=== PATIENT | male | born 1985 | race Caucasian/White ===

== ENCOUNTER 2016-10-02 15:00 | Emergency (ER) | payer OTHER ==
[~2016-10-02] VITALS: Ht 180.3 cm; Wt 103.2 kg
[2016-10-02] MEDS ORDERED: ALL DAY ALLERGY10 MG PO (15:24)
[2016-10-02] MEDS ORDERED: ACID CONTROL150 MG PO (15:24)
[2016-10-02] MEDS ORDERED: HYDROCODON-ACE1 EAC7 PO (15:25)
[2016-10-02] MEDS ORDERED: METHOCARBAMOL500 MG PO (15:25)
[2016-10-02 15:57] LABS: HEMATOCRIT 43.3 % (38.0-50.0); MCH 30.5 PG (29.0-34.0); MCHC 34.9 G/DL (30.0-36.0); MCV 87.5 FL (86-99); MEAN PLAT.VOLUME 10.1 uM^3 (9.0-12.4); PLATELET COUNT 215 K/uL (156-360); RBC DIS.WIDTH-CV 12.2 % (11.8-14.6); RBC DIS.WIDTH-SD 38.5 % (39-53); RED BLOOD COUNT 4.95 M/uL (4.00-5.50); WHITE BLOOD COUNT 6.4 K/uL (4.1-10.2)
[2016-10-02 16:03] LABS: CHLORIDE 105 mEq/L (99-109)
[2016-10-02 16:04] LABS: POTASSIUM 3.7 mEq/L (3.7-5.4); SODIUM 141 mEq/L (136-147)
[2016-10-02 16:06] LABS: GLUCOSE 78 mg/dL (70-99)
[2016-10-02 16:07] LABS: ANION GAP 15 MEQ/L (2-14)
[2016-10-02 16:08] LABS: TOTAL BILIRUBIN 1.8 mg/dL (0.0-1.0)
[2016-10-02 16:09] LABS: ALKALINE PHOSPHATASE 40 IU/L (3-129); GFR ESTIMATE (CALCULATED) > 59 mL/min/
[2016-10-02 16:10] LABS: UREA NITROGEN (BUN) 11 mg/dL (9-23)
[2016-10-02 16:13] LABS: LIPASE 9 U/L (1.0-51.0)
[2016-10-02] MEDS ORDERED: NORCO 5/3251 TABLET PO (18:00)
[2016-10-02] MEDS ORDERED: ZOFRAN ODT4 MG PO (18:00)
[2016-10-02 18:16] VITALS: BP 122/74
== END 2016-10-02 18:22 | disposition home or self-care (01) ==
LOC: EME 15:00
PROVIDERS: Nurse Practitioner Family
DX: K80.20 Calculus of gallbladder without cholecystitis without obstruction (principal); K21.9 Gastro-esophageal reflux disease without esophagitis; F17.200 Nicotine dependence, unspecified, uncomplicated
CPT/HCPCS: 74177; 80053; 83690; 85027; 93005; 99281; 99285; J7040

== ENCOUNTER 2016-10-27 08:49 | Day surgery (SDC) | payer OTHER ==
[~2016-10-27] VITALS: Ht 180.3 cm; Wt 99.8 kg
[~2016-10-27 08:49] MED LIST: ACID CONTROL150 MG PO; ALL DAY ALLERGY10 MG PO; FIBER-TABS625 MG PO; HYDROCODON-ACE1 EAC7 PO; METHOCARBAMOL500 MG PO; MULTIPLE VITAM1 EACH PO; NORCO 5/3251 TABLET PO; PREDNISONE20 MG PO; ZOFRAN ODT4 MG PO; ZYRTEC10 M2 PO
[2016-10-27 09:27] VITALS: BP 122/77
[2016-10-27 13:07] VITALS: BP 133/68
[2016-10-27 13:46] VITALS: BP 120/70
== END 2016-10-27 14:00 | disposition home or self-care (01) ==
LOC: SDC 08:49
PROC: 0FT44ZZ Resection of Gallbladder, Percutaneous Endoscopic Approach (ICD-10-PCS; principal; 2016-10-27)
DX: K80.10 Calculus of gallbladder with chronic cholecystitis without obstruction (principal); E80.6 Other disorders of bilirubin metabolism; Q44.1 Other congenital malformations of gallbladder; M51.36 Other intervertebral disc degeneration, lumbar region; K21.9 Gastro-esophageal reflux disease without esophagitis; J30.2 Other seasonal allergic rhinitis; J30.89 Other allergic rhinitis; Z80.1 Family history of malignant neoplasm of trachea, bronchus and lung; Z87.891 Personal history of nicotine dependence
CPT/HCPCS: 88304; J0330; J0690; J1100; J1170; J2405; J2710; J3010

== ENCOUNTER 2017-09-11 07:36 | Emergency (ER) | payer OTHER ==
[~2017-09-11] VITALS: Ht 180.3 cm; Wt 97.7 kg
[2017-09-11 08:37] LABS: HEMOGLOBIN 14.9 G/DL (12.5-16.6); MCHC 34.7 G/DL (30.0-36.0); MCV 89.4 FL (86-99); PLATELET COUNT 166 K/uL (156-360); RBC DIS.WIDTH-CV 11.5 % (11.8-14.6); RBC DIS.WIDTH-SD 37.6 % (39-53); RED BLOOD COUNT 4.81 M/uL (4.00-5.50); WHITE BLOOD COUNT 4.3 K/uL (4.1-10.2)
[2017-09-11 08:46] LABS: CHLORIDE 105 mEq/L (99-109); SODIUM 139 mEq/L (136-147)
[2017-09-11 08:48] LABS: GLUCOSE 90 mg/dL (70-99); TOTAL PROTEIN 6.2 g/dL (6.4-8.3)
[2017-09-11 08:50] LABS: TOTAL BILIRUBIN 1.7 mg/dL (0.0-1.0)
[2017-09-11 08:52] LABS: ALKALINE PHOSPHATASE 43 IU/L (3-129); CREATININE 0.9 mg/dL (0.6-1.3); GFR ESTIMATE (CALCULATED) > 59 mL/min/ (58.99-99999)
[2017-09-11 08:53] LABS: UREA NITROGEN (BUN) 17 mg/dL (9-23)
[2017-09-11 08:54] LABS: AST (GOT) 22 IU/L (2-34)
[2017-09-11 08:55] LABS: ALT (GPT) 22 IU/L (3-49); LIPASE 10 U/L (1.0-51.0)
[2017-09-11 09:34] LABS: APPEARANCE CLEAR ((CLEAR)); BILIRUBIN NEGATIVE; BLOOD NEGATIVE; COLOR YELLOW ((YELLOW)); GLUCOSE (STRIP) NEGATIVE; KETONES NEGATIVE; LEUKOCYTES NEGATIVE; NITRITE NEGATIVE; PROTEIN (STRIP) NEGATIVE; SPECIFIC GRAVITY 1.012 (1.000-1.030); UROBILINOGEN 0.2 MG/DL (0.2-1.0)
[2017-09-11 10:02] LABS: DIRECT BILIRUBIN 0.6 mg/dL (0.0-0.3)
[2017-09-11] MEDS ORDERED: ZOFRAN ODT4 MG PO (10:51)
[2017-09-11] MEDS ORDERED: MIRALAX119 GM PO (10:51)
[2017-09-11] MEDS ORDERED: BENTYL20 MG PO (10:51)
[2017-09-11 11:25] VITALS: BP 126/70
== END 2017-09-11 11:25 | disposition home or self-care (01) ==
LOC: EME 07:36
PROVIDERS: Nurse Practitioner Family
DX: R10.31 Right lower quadrant pain (principal); K59.00 Constipation, unspecified; R11.0 Nausea; Z90.49 Acquired absence of other specified parts of digestive tract; G89.29 Other chronic pain; M54.9 Dorsalgia, unspecified; Z87.891 Personal history of nicotine dependence
CPT/HCPCS: 74022; 80053; 81003; 82248; 83690; 85027; 99281; 99284

== ENCOUNTER 2018-03-17 06:47 | Emergency (ER) | payer OTHER ==
[~2018-03-17] VITALS: Ht 180.3 cm; Wt 100.1 kg
[~2018-03-17 06:47] MED LIST changes: +BENTYL20 MG PO; +MIRALAX119 GM PO
[2018-03-17] MEDS ORDERED: NORCO 5/3251 TABLET PO (09:26)
[2018-03-17] MEDS ORDERED: MEDROL DOSEPAK4 MG PO (09:26)
[2018-03-17] MEDS ORDERED: TIZANIDINE HCL2 M1 PO (09:26)
[2018-03-17] MEDS ORDERED: LIDODERM 5% P1 PATCH TD (09:26)
[2018-03-17] MEDS ORDERED: VOLTAREN 1% GE100 GM TP (09:45)
[2018-03-17 10:05] VITALS: BP 112/62
== END 2018-03-17 10:07 | disposition home or self-care (01) ==
LOC: EME 06:47
DX: M54.16 Radiculopathy, lumbar region (principal); M54.6 Pain in thoracic spine; G89.29 Other chronic pain; F32.9 Major depressive disorder, single episode, unspecified; F41.9 Anxiety disorder, unspecified; K58.9 Irritable bowel syndrome, unspecified; Z87.891 Personal history of nicotine dependence
CPT/HCPCS: 72070; 99281; 99283; J3010; J7512